=== PATIENT | female | born 1995 | race Caucasian/White ===

== ENCOUNTER 2024-06-23 11:46 | Inpatient (IN) | payer MEDICAID ==
[~2024-06-23] VITALS: Ht 170.2 cm; Wt 150.0 kg
[2024-06-23] MEDS: NICOTINE 14 MG/24 HR TRANSDERMAL TD SCH (09:00)
[2024-06-23] MEDS ORDERED: KEPP10002 PO (12:31)
[2024-06-23] MEDS ORDERED: NEUR300C PO (12:32)
[2024-06-23] MEDS ORDERED: HYDR50TA70 PO (12:34)
[2024-06-23] MEDS ORDERED: ZYPR5TAB2 PO (12:42)
[2024-06-23] MEDS ORDERED: VYVA20CA PO (12:43)
[2024-06-23] MEDS ORDERED: VIIB20TA PO (12:44)
[2024-06-23] MEDS ORDERED: LORazepam 1 MG TAB PO PRN (14:15)
[2024-06-23] MEDS ORDERED: MAALOX 30 ML SUSP *UDC PO PRN (14:15)
[2024-06-23] MEDS ORDERED: MOM 30ML SUSPENSION UDC PO PRN (14:15)
[2024-06-23] MEDS ORDERED: OLANZapine ORAL DISINTEGRATING TAB 5MG PO PRN (14:15)
[2024-06-23] MEDS ORDERED: ACETAMINOPHEN 325 MG TAB PO PRN (14:15)
[2024-06-23] MEDS ORDERED: traZODone 50 MG TAB PO PRN (14:15)
[2024-06-23] MEDS ORDERED: ZYPR2.5T2 PO (15:52)
[2024-06-23] MEDS ORDERED: HOME MED LIST COMPLETE! XX SCH (15:55)
[2024-06-23 17:29] VITALS: BP 146/93; TEMP 97.6; O2SAT 97
[2024-06-23] MEDS ORDERED: hydrOXYzine 50 MG TAB PO PRN (18:50)
[2024-06-23] MEDS: GABAPENTIN 300 MG CAP PO SCH (20:20)
[2024-06-23] MEDS: OLANZapine 5 MG TAB PO SCH (20:20)
[2024-06-23] MEDS: levETIRAcetam 250MG TABLET (KEPPRA) PO SCH (20:20)
[2024-06-23] MEDS: diphenhydrAMINE 25MG CAP PO PRN (20:51)
[2024-06-24 06:51] VITALS: BP 137/87; TEMP 97.2; O2SAT 98
[2024-06-24] MEDS ORDERED: ENTER DRUG NAME HERE (PATIENT'S OWN MED) PO PRN (09:45)
[2024-06-24] MEDS: FLUoxetine 20MG CAP PO SCH (10:50)
[2024-06-24 16:47] VITALS: BP 158/88; TEMP 97.9; O2SAT 97
[2024-06-24] MEDS: RAMELTEON 8 MG TAB (ROZEREM) PO SCH (20:04)
[2024-06-25 06:30] VITALS: BP 127/60; TEMP 97; O2SAT 100
[2024-06-25 07:09] LABS: HEMATOCRIT 39.6 % (36.0-47.0); HEMOGLOBIN 12.7 g/dl (12.0-15.5); MEAN CORPUSCULAR HGB CONC 32.1 g/dl (32.0-36.5); MEAN CORPUSCULAR VOLUME 81.1 fl (80.0-96.0); PLATELET COUNT, AUTOMATED 248 10^3/uL (150-450); RED BLOOD COUNT 4.88 10^6/uL (4.00-5.40); WHITE BLOOD COUNT 8.6 10^3/uL (4.0-10.0)
[2024-06-25 07:39] LABS: BLOOD UREA NITROGEN 13 MG/DL (9-23); CALCIUM LEVEL 8.9 MG/DL (8.5-10.1); CARBON DIOXIDE LEVEL 25 MMOL/L (20-31); CHLORIDE LEVEL 105 MMOL/L (98-107); GLOMERULAR FILTRATION RATE > 60.0 (>60); GLUCOSE, FASTING 127 MG/DL (60-100); POTASSIUM SERUM 4.4 MMOL/L (3.5-5.1); SODIUM LEVEL 141 MMOL/L (136-145)
[2024-06-25] MEDS ORDERED: ENTER DRUG NAME HERE (PATIENT'S OWN MED) PO SCH (09:00)
[2024-06-25 14:57] VITALS: BP 136/63; TEMP 97.8; O2SAT 98
[2024-06-26 06:24] VITALS: BP 132/65; TEMP 97; O2SAT 96
[2024-06-26 16:21] VITALS: BP 124/62; TEMP 97.4; O2SAT 99
[2024-06-27 06:34] VITALS: BP 132/78; TEMP 97; O2SAT 100
[2024-06-27 15:40] VITALS: BP 132/81; TEMP 97.6; O2SAT 98
[2024-06-27 16:50] VITALS: BP 150/90; TEMP 97.9; O2SAT 99
[2024-06-28 06:47] VITALS: BP 131/78; TEMP 96.9; O2SAT 98
[2024-06-28 15:49] VITALS: BP 134/80; TEMP 97.4; O2SAT 98
[2024-06-29 07:00] VITALS: BP 123/75; TEMP 96.6; O2SAT 99
[2024-06-29 15:07] VITALS: BP 133/82; TEMP 97.4; O2SAT 98
[2024-06-30 06:33] VITALS: BP 129/65; TEMP 96.7; O2SAT 100
[2024-06-30] MEDS ORDERED: FLUO-365 PO (08:15)
== END 2024-06-30 12:01 | disposition home or self-care (01) | DRG 751 ==
LOC: M ED 11:46 → EDBD 11:46 → M ED INP 14:15 → M PSY 15:58
PROVIDERS: ADMIT Internal Medicine; ATTEND Internal Medicine
DX: F33.2 Major depressive disorder, recurrent severe without psychotic features (principal); R56.9 Unspecified convulsions; R45.851 Suicidal ideations; F41.1 Generalized anxiety disorder; F43.10 Post-traumatic stress disorder, unspecified; F90.9 Attention-deficit hyperactivity disorder, unspecified type; F12.90 Cannabis use, unspecified, uncomplicated; Z88.0 Allergy status to penicillin; Z88.8 Allergy status to other drugs, medicaments and biological substances; Z79.899 Other long term (current) drug therapy

== ENCOUNTER → 2024-07-08 | Outpatient (CLI) | payer MEDICAID ==
[~2024-07-08] MED LIST: FLUO-365 PO; HYDR50TA70 PO; KEPP10002 PO; NEUR300C PO; VIIB20TA PO; VYVA20CA PO; ZYPR2.5T2 PO; ZYPR5TAB2 PO
== END ==
LOC: M SOG 13:17
PROVIDERS: ATTEND Physician Assistant
DX: M25.572 Pain in left ankle and joints of left foot (principal); S82.832D Other fracture of upper and lower end of left fibula, subsequent encounter for closed fracture with routine healing

== ENCOUNTER → 2024-08-05 | Outpatient (CLI) | payer MEDICAID | LOC: M SOG 07:55 | PROVIDERS: ATTEND Physician Assistant | DX: M25.572 Pain in left ankle and joints of left foot (principal) ==